=== PATIENT | female | born 1990 | race Caucasian/White ===

== ENCOUNTER → 2019-06-14 13:46 | Outpatient (BNVA) | payer OTHER, SELFPAY | PROVIDERS: Visit Provider Family Medicine | DX: Z32.00 Encounter for pregnancy test, result unknown (principal) | CPT/HCPCS: 81025 ==

== ENCOUNTER → 2020-03-14 11:10 | Outpatient (BNVA) | payer OTHER, SELFPAY | PROVIDERS: Visit Provider Obstetrics & Gynecology | DX: N92.0 Excessive and frequent menstruation with regular cycle (principal) | CPT/HCPCS: 83525; 84443; 85025 ==

== ENCOUNTER → 2020-03-27 13:46 | Outpatient (BNVA) | payer OTHER, SELFPAY | PROVIDERS: Visit Provider Obstetrics & Gynecology | DX: N92.0 Excessive and frequent menstruation with regular cycle (principal); N83.8 Other noninflammatory disorders of ovary, fallopian tube and broad ligament; N85.2 Hypertrophy of uterus | CPT/HCPCS: 76830 ==

== ENCOUNTER → 2020-04-04 13:47 | Outpatient (BNVA) | payer OTHER, SELFPAY | PROVIDERS: Visit Provider Obstetrics & Gynecology | DX: Z12.4 Encounter for screening for malignant neoplasm of cervix (principal) | CPT/HCPCS: 88175 ==

== ENCOUNTER → 2020-04-28 10:18 | Outpatient (BNVA) | payer OTHER, SELFPAY | PROVIDERS: Referring Provider Obstetrics & Gynecology; Visit Provider Obstetrics & Gynecology | DX: G89.29 Other chronic pain (principal); N80.9 Endometriosis, unspecified; N92.0 Excessive and frequent menstruation with regular cycle; R10.2 Pelvic and perineal pain | CPT/HCPCS: 87635 ==

== ENCOUNTER 2020-05-04 05:54 | Day surgery (SDC) | payer OTHER, SELFPAY ==
[2020-04-27 09:47] VITALS: BMI 25.1
--- NOTE | 2020-04-27 13:38 | ANES.PREANE2 ---
Pre-Anesthetic Assessment Pre-Anesthetic Assessment: Height/Weight: Height 1.6 m Weight 64.41 kg Proposed Procedure: Operation Date: 05/04/20 07:00 Proposed Procedures p Laparoscopy with fulguration of endometriosis 27313, 94952, 93494, 72489, N80.9 R10.2 N94.89 N92.0(Not Applicable) - Cally Andrews MD s Hysteroscopy(Not Applicable) - Cally Andrews MD s Dilation And Curettage (D&C)(Not Applicable) - Cally Andrews MD Was Beta Igor taken within 24 hours: N/A Social: Social History: Tobacco Exam: Pre-Anes Outpt Exam: alert, oriented x 3, clear to auscultation bilaterally and regular rate & rhythm Airway: Submandibular: WNL Cervical ROM: WNL MP: 2 Dentition: Full Additional comments: multiple caries Anesthetic Plan: ASA status: 2 Anesthesia: General Risk of > 500 ml blood loss (7ml/kg in children): No PFSH Anesthesia PFSH: Medical History Menorrhagia No pertinent past medical history Surgical History No pertinent past surgical history Family History Father Stroke Heart disease Sister Diabetes Grandmother Diabetes Other Cancer Denies family history of Hyperlipidemia Suicide Hypertension Social History (Updated 04/26/20 @ 12:38 by FIDEL Flood) Smoking and tobacco status: current every day smoker cigarettes Alcohol intake: never Substance/Drug Use: never Female Reproductive History: Date of last menstrual period: 04/18/20 Data Anesthesia Cardiac Studies: No Data to Display
[2020-05-04] VITALS (10 sets, daily range): BP systolic 89–134; BP diastolic 68–97; PULSE 82–107; RESP 16–20; TEMP 36.4–37; O2SAT 97–100
[2020-05-04 06:11] LABS: OR HCG Qualitative Urine Negative (Negative)
[2020-05-04] MEDS: ketorolac 30 mg/mL INJ IVP (06:22)
[2020-05-04] MEDS: gabapentin 300 mg Capsule PO (06:23)
[2020-05-04] MEDS: sodium chloride 0.9% 1,000 ML 999 ML IV (06:23)
--- NOTE | 2020-05-04 06:55 | W.PM.OPSUD ---
Surgery/Procedure H&P Update DATE OF PROCEDURE: May 04, 2020 DATE H&P PERFORMED: 04/26/20 H&P UPDATE INFORMATION: I have reviewed H&P completed within last 30 days, I have examined patient prior to procedure and No changes to prior documentation PREOP DIAGNOSIS: menorrhagia, pelvic pain, endometriosis PLANNED PROCEDURE: Operation Date: 05/04/20 07:00 Proposed Procedures p Laparoscopy with fulguration of endometriosis 03201, 48205, 81723, 25428, N80.9 R10.2 N94.89 N92.0(Not Applicable) - Cally Andrews MD s Hysteroscopy(Not Applicable) - Cally Andrews MD s Dilation And Curettage (D&C)(Not Applicable) - Cally Andrews MD
--- NOTE | 2020-05-04 06:56 | P.ANESUD_ITS ---
Pre-Anesthetic Update Pre-Anesthetic Assessment: Date of Surgery/Procedure: 05/04/20 Preop Annetta gnosis: menorrhagia, pelvic pain, endometriosis Proposed Procedure: Operation Date: 05/04/20 07:00 Proposed Procedures p Laparoscopy with fulguration of endometriosis 33263, 24233, 84742, 63486, N80.9 R10.2 N94.89 N92.0(Not Applicable) - Cally Andrews MD s Hysteroscopy(Not Applicable) - Cally Andrews MD s Dilation And Curettage (D&C)(Not Applicable) - Cally Andrews MD Any changes to Pre-Anesthetic Assessment?: No Last Intake: Intake Last Liquid Date 05/04/20 Last Liquid Time 04:30 Last Solid Date 05/03/20 Last Solid Time 21:00 Labs Last 48hrs: Laboratory Results - last 48 hr 05/04/20 05:57 Urine HCG, Qual Negative Vitals: Temperature 98.6 F 05/04/20 06:15 Temperature Source Temporal Artery S can 05/04/20 06:15 Pulse Rate 102 H 05/04/20 06:15 Respiratory Rate 18 05/04/20 06:15 Blood Pressure 111/68 05/04/20 06:15 Blood Pressure Tari n 82 05/04/20 06:15 Pulse Oximetry 98 05/04/20 06:15 Oxygen Delivery Me thod 05/04/20 06:15 Exam: Pre-Anes Outpt Exam: alert, oriented x 3, clear to auscultation bilaterally and regular rate & rhythm Cardiac Studies: No Data to Display
[2020-05-04] MEDS: miSOPROStol 200 mcg Tablet 600 MCG VAGINAL (07:48)
--- NOTE | 2020-05-04 08:05 | SUR.OPER ---
phoned with an update
--- NOTE | 2020-05-04 08:40 | PM.OP ---
Operative Report Date of procedure: May 04, 2020 Pre-op Diagnosis: menorrhagia, pelvic pain, endometriosis Post-op diagnosis: same Post-op Findings: Large cervical fibroid, endometriosis Procedure Done: laparoscopy, attempted hysteroscopy Specimens removed/disposition: endometriosis Pathology: other Pathology: endometriosis Anesthesia: General Estimated blood loss (mL): 20 IV fluids (mL): 800 Urine output (mL): 400 Complications: unable to dilate cervix. Large cervical fibroid present. Findings: 10 week sized uterus, grossly normal appearing ovaries, endometriosis in pelvis, large cervical fibroid Condition: stable Disposition: PACU Procedure: The patient was taken to the operating room where general anesthesia was administered and found to be adequate. She is prepped and draped in the normal sterile fashion in the dorsal lithotomy position in [facility]. A Monzon catheter was placed. I attempted to place these Zumi uterine manipulator but was unable to place it. I then attempted to dilate the cervix in order to place the ZUMI manipulator. I tried all different types of dilators and was unable to dilate the cervix. I placed 600 mcg of Cytotec vaginally posterior to the cervix. I was still unable to dilate the cervix. The hysteroscopic portion was abandoned. A sponge stick was placed into the vagina. The gloves were changed and a 5 mm infra umbilical incision was made. The trocar was placed with the laparoscope inside and intra-abdominal placement was confirmed. Two 5 mm lateral trochars were placed under direct visualization. The patient was placed in Trendelenburg. The uterus was elevated. There was a large cervical fibroid present. There was endometriosis over the bladder the posterior peritoneum the anterior peritoneum and the left pelvic sidewall. The left ovary was slightly enlarged. I attempted to drain a cyst however there was no fluid in the cyst it was ovarian parenchyma only. Using the voyant, I fulgurated the endometriosis. There were some areas of endometriosis on the left ovary and I fulgurated them as well. There was a lot of blood-tinged fluid in the pelvis. This was irrigated and suctioned. Pictures were taken pre and post procedure. All instruments were removed. The abdomen was desufflated. The incisions were closed subcutaneously with 4-0 Vicryl and skin glue was used. Sponge lap and needle counts were correct x3. She tolerated the procedure well and was taken to the recovery room in stable condition.
[2020-05-04] MEDS: fentaNYL 50 mcg/mL INJ 2mL IVP (08:47)
[2020-05-04] MEDS: meperidine 50 mg/mL INJ 12.5 MG IVP (08:57)
--- NOTE | 2020-05-04 08:58 | PM.DCS ---
Discharge Providers Date of Discharge: May 04, 2020 Attending Provider at Discharge: Cally Andrews MD Diagnoses at Discharge Discharge Diagnosis (1) Chronic pelvic pain in female: Status: Acute (2) Endometriosis: Status: Acute (3) Menorrhagia: Status: Acute Reason for Visit Reason for Visit: Laparoscopy with fulguration of endometriosis (586 Hospital Course Hospital Course The patient was admitted for surgery. She did well postoperatively and was ready for discharge. Physical Exam Urinary Catheter Management^: Monzon: Cath Placed During This Visit: yes Urinary Catheter Date of Insertion: 05/04/20 Urinary Catheter Time of Insertion: 07:35 Discharge Data Data Completed and Pending: Pending at discharge Category Date Time Status ES surgery / GI i mages Routine Exams 05/04/20 07:29 Taken Pathology: Surgic al [PTH] Routine Pth 05/04/20 08:44 Ordered Labs from last 24 hours 05/04/20 05:57 Urine HCG, Qual Negative Vitals: Last Vital Signs Temp 97.5 F L 05/04/20 08:40 Pulse 96 05/04/20 08:55 Resp 18 05/04/20 08:57 BP 121/97 05/04/20 08:55 Pulse Ox 99 05/04/20 08:57 Discharge Plan Discharge Patient Disposition: Home Condition: Stable Prescriptions: [place] 5-325 mg tablet 1 tab PO Q6H Qty: 30 RF: 0 Continued acetaminophen [Tylenol] 325 mg tablet 325 mg PO QID PRN (Reason: Pain) RF: 0 ibuprofen 200 mg tablet 600 mg PO Q6H PRN (Reason: Pain) RF: 0 tranexamic acid [Lysteda] 650 mg tablet 650 mg PO TID Qty: 18 RF: 6 Discharge Orders: Discharge Order (Routine); Ordered 05/04/20 Ordered By: Cally Andrews Discharge Attestations Time Spent in Discharge Care*: less than 30 min Quality Metrics Clinical Quality Measures During this hospital stay, did patient experience: None Coding Level of Care Code Acute Is/It Project Manager for Chg Fwd Diagnoses Chronic pelvic pain in female R10.2; G89.29 Endometriosis N80.9 Menorrhagia N92.0
[2020-05-04] MEDS: HYDROcodone-acetaminophen 5-325 mg Tablet 1 TAB PO (09:31)
== END 2020-05-04 10:16 | disposition home or self-care (01) ==
PROVIDERS: Anesthesiology; Visit Provider Obstetrics & Gynecology
PROC: (CPT 58670; principal; 2020-05-04 07:00)
PROC: 0UJD8ZZ Inspection of Uterus and Cervix, Via Natural or Artificial Opening Endoscopic (ICD-10-PCS; CPT 58555; 2020-05-04 07:00)
DX: N92.0 Excessive and frequent menstruation with regular cycle (principal); R10.2 Pelvic and perineal pain; N80.9 Endometriosis, unspecified; G89.29 Other chronic pain; F17.210 Nicotine dependence, cigarettes, uncomplicated
CPT/HCPCS: 58662; 81025; 84703; 88307; 96365; 96374; J0131; J0690; J1100; J1885; J2175; J2405; J2704; J3010; J3490; J7030

== ENCOUNTER → 2020-06-21 13:24 | Outpatient (BNVA) | payer OTHER, SELFPAY | PROVIDERS: PCP Family Medicine; Visit Provider Counselor Professional | DX: F33.1 Major depressive disorder, recurrent, moderate (principal) | CPT/HCPCS: 90791 ==

== ENCOUNTER → 2020-07-11 09:21 | Outpatient (BNVA) | payer OTHER, SELFPAY | PROVIDERS: PCP Family Medicine; Visit Provider Psychiatry & Neurology Psychiatry | DX: F41.1 Generalized anxiety disorder (principal) | CPT/HCPCS: 90792 ==

== ENCOUNTER → 2021-06-26 08:49 | Outpatient (BNVA) | payer OTHER, SELFPAY | PROVIDERS: PCP Family Medicine; Visit Provider Emergency Medicine | DX: D25.9 Leiomyoma of uterus, unspecified (principal); R10.2 Pelvic and perineal pain; G89.29 Other chronic pain | CPT/HCPCS: 81025 ==

== ENCOUNTER → 2021-06-28 09:30 | Outpatient (BNVA) | payer OTHER, SELFPAY | PROVIDERS: PCP Family Medicine; Visit Provider Obstetrics & Gynecology | DX: F41.9 Anxiety disorder, unspecified (principal) | CPT/HCPCS: 84443 ==

== ENCOUNTER 2021-07-17 11:12 | Day surgery (SDC) | payer OTHER, SELFPAY ==
[2021-07-16 11:14] VITALS: BMI 23.9
[2021-07-17] VITALS (15 sets, daily range): BP systolic 97–113; BP diastolic 57–83; PULSE 56–87; RESP 16–22; TEMP 36.2–37.6; O2SAT 92–100
[2021-07-17] MEDS: sodium chloride 0.9% 1,000 ML 30 ML IV (12:31)
[2021-07-17 14:14] LABS: OR HCG Qualitative Urine Negative (Negative)
--- NOTE | 2021-07-17 14:15 | ANES.PREANE2 ---
Pre-Anesthetic Assessment Height/Weight: Height 1.6 m Weight 61.235 kg Temp Pulse Resp BP Pulse Ox 98.0 F 85 18 103/83 99 07/17/21 12:13 07/17/21 12:13 07/17/21 12:13 07/17/21 12:13 07/17/21 12:13 Preop Diagnosis: menorrhagia, pelvic pain, cervical fibroid Operation Date: 07/17/21 13:05 Proposed Procedures p Hysteroscopy w/ Myosure 03381/10657/32976/N93.9(Not Applicable) - Cally Andrews MD s Dilation And Curettage (D&C)(Not Applicable) - Cally Andrews MD Familial anesthetic complications: None Was Beta Igor taken within 24 hours: N/A Was Clonidine taken within 24 hours: N/A Last intake: Intake Last Liquid Date 07/17/21 Last Liquid Time 06:15 Last Solid Date 07/16/21 Last Solid Time 18:00 Social No alcohol Exam alert, oriented x 3, clear to auscultation bilaterally and regular rate & rhythm Airway Submandibular: within normal limits Cervical ROM: within normal limits Mallampati: Class II Dentition: chipped Comments: Comments: Poor dentition, multiple caries CV/HEM Arrythmia and Murmur (MVP) Neuropsych Anxiety Anesthetic Plan ASA status: 2 Anesthesia: General Medications/Allergies Home Medications Medication Instructions Recorded Confirmed Last Taken Type acetaminophen 325 mg tablet 325 mg PO QID PRN 11/03/19 07/16/21 07/16/21 History (Tylenol) ibuprofen 800 mg tablet 800 mg PO Q8H PRN #60 tab 06/25/21 07/16/21 Unknown Rx misoprostol 200 mcg tablet 600 mcg PO Q6H #12 tab 06/28/21 07/16/21 07/17/21 06:15 Rx (Cytotec) Allergies Allergy/AdvReac Type Severity Reaction Status Date / Time tramadol Allergy Severe sick Verified 07/16/21 11:13 chlorpheniramine AdvReac Severe Unknown Verified 07/16/21 11:13 [From Aller-Chlor Decongestant] pseudoephedrine AdvReac Severe Unknown Verified 07/16/21 11:13 [From Aller-Chlor Decongestant] acetaminophen AdvReac Intermediate constipation Verified 07/16/21 11:13 [From Tylenol-Codeine #3] - abdominal pain codeine AdvReac Intermediate constipation Verified 07/16/21 11:13 [From Tylenol-Codeine #3] - abdominal pain Current Medications Generic Name Dose Route Start Last Admin Trade Name Obdulio PRN Reason Stop Dose Admin Sodium Chloride 1,000 mls @ 30 mls/hr 07/17/21 12:00 07/17/21 12:31 Sodium Chloride 0.9% IV 07/18/21 11:59 30 mls/hr .Q24H ELVIA Administration PFSH Anesthesia Medical History Adnexal mass KAYLA (generalized anxiety disorder) Menorrhagia Mitral valve prolapse No pertinent past medical history neghx: dm, htn, thyroid PCP: none Tachycardia Tonsillectomy planned Surgical History History of laparoscopy No pertinent past surgical history Previous section Family History Father Stroke Heart disease Palpitations Sister Diabetes Grandmother Diabetes Other Cancer Denies family history of Clotting disorder Hyperlipidemia Suicide Bleeding disorder Hypertension Female Reproductive History Date of last menstrual period: 04/18/20 Data Anesthesia Cardiac Studies: Cardiac Event Monitor 06/30/20
--- NOTE | 2021-07-17 14:20 | W.PM.OPSUD ---
Surgery/Procedure H&P Update DATE OF PROCEDURE: July 17, 2021 DATE H&P PERFORMED: 07/13/21 H&P UPDATE INFORMATION: I have reviewed H&P completed within last 30 days, I have examined patient prior to procedure and No changes to prior documentation PREOP DIAGNOSIS: menorrhagia, pelvic pain, cervical fibroid PLANNED PROCEDURE: Operation Date: 07/17/21 13:05 Proposed Procedures p Hysteroscopy w/ Myosure 56490/04200/63120/N93.9(Not Applicable) - Cally Andrews MD s Dilation And Curettage (D&C)(Not Applicable) - Cally Andrews MD Related Problem List Diagnoses (1) Chronic pelvic pain in female: (2) Menorrhagia:
[2021-07-17] MEDS: miSOPROStol 200 mcg Tablet 800 MCG VAGINAL (15:23)
--- NOTE | 2021-07-17 15:43 | P.OP_ITS ---
Operative Report Date of procedure: July 17, 2021 Pre-op diagnosis: Preop Diagnosis menorrhagia, pelvic pain, cervical fibroid Post-op diagnosis: same Post-op findings: 10 week sized uterus with excessive tissue. possible fibroids and polyps Procedure done: hysteroscopy, dilation and curettage with myosure Specimens removed/disposition: endometrial curettings to pathology Surgeon: Cally Andrews Anesthesia: MAC Estimated blood loss (mL): 10 IV fluids (mL): 600 Complications: none Findings: 10 week sized uterus 480 ml hysteroscopy deficit Condition: stable Disposition: PACU Procedure: The patient was taken to the operating room where monitored anesthesia was administered and to be adequate. She was prepped and draped in the normal sterile fashion in the dorsal lithotomy position in [facility]. A weighted speculum was placed into the vagina and the anterior lip of the cervix grasped with a single-tooth tenaculum. The uterus was unable to be sounded due to cervical stenosis. 800 mcg of cytotec was placed and the uterus sounded to 10 cm. The cervix was dilated to 16 [place]. The hysteroscope was advanced into the endometrial cavity. There was excessive tissue visualized. There was tissue covering the right tubal ostia. The MyoSure device was activated and the tissue was removed. Pictures were taken pre and post procedure. All instruments were removed. The patient tolerated the procedure well. Sponge lap and needle counts were correct x3. She was taken to the recovery room in stable condition.
--- NOTE | 2021-07-17 15:51 | PM.DCS ---
Discharge Providers Date of Admission: 07/17/21 Date of Discharge: July 17, 2021 Attending Provider at Discharge: Cally Andrews MD Primary Care Provider: Edith Peña MD Diagnoses at Discharge Discharge Diagnosis (1) Chronic pelvic pain in female: Status: Acute (2) Menorrhagia: Status: Acute Hospital Course Hospital Course The patient was admitted for surgery. She did well postoperatively and was ready for discharge after surgery Discharge Data Studies Completed and Pending Pending at discharge Category Date Time Status ES surgery / GI images Routine Exams 07/17/21 12:32 Taken Pathology: Surgical [PTH] Routine Pth 07/17/21 15:28 Ordered Laboratory Results Urine HCG, Qual Negative (Negative) 07/17/21 12:22 Vitals Last Vital Signs Temp 98.0 F 07/17/21 12:13 Pulse 85 07/17/21 12:13 Resp 18 07/17/21 12:13 BP 103/83 07/17/21 12:13 Pulse Ox 99 07/17/21 12:13 Discharge Plan Discharge Patient Disposition: Home Condition: Stable Prescriptions: Continued acetaminophen [Tylenol] 325 mg tablet 325 mg PO QID PRN (Reason: Pain) 0RF misoprostol [Cytotec] 200 mcg tablet 600 mcg PO Q6H Qty: 12 0RF Rx Instructions: start taking at noon the day before surgery. Last dose at 6:00 am the morning of surgery ibuprofen 800 mg tablet 800 mg PO Q8H PRN (Reason: pain) Qty: 60 0RF Discharge Orders: Discharge Order (Routine); Ordered 07/17/21 Ordered By: Cally Andrews Discharge Attestations Time Spent in Discharge Care*: less than 30 min Quality Metrics Clinical Quality Measures [ No reported AMI, CVA or VTE this stay] Coding Level of Care Code Acute Chg FW DC note Diagnoses Chronic pelvic pain in female R10.2; G89.29 Menorrhagia N92.0
[2021-07-17] MEDS: fentaNYL 50 mcg/mL INJ 2mL IVP ×2 (16:03→16:14)
--- NOTE | 2021-07-17 16:20 | SUR.PHASEI ---
1546 PT TO PACU 4 PT AWAKE, C/O OF PAIN OF 7 TO ABDOMEN ABDOMEN SOFT ALBERTO PAD IN PLACE D/I IV TO RT AC WITH #20 NS 250 UP AT MOD RATE PER GRAVITY. SCDS ON BILATERALLY LT WRIST HAS ID BRACELET PT ID'D WITH 2 IDENTIFIERS. 1625 [T AWAKE ALERT TALKTAVE , STATES PAIN IS BETTER NOW.
--- NOTE | 2021-07-17 16:27 | ANE.PACU2 ---
Inpatient post-anesthesia follow up: Airway intact: Yes Vital signs: Temperature 97.2 F Pulse Rate 73 Respiratory Rate 16 Blood Pressure 112/70 Pulse Oximetry 98 Oxygen Delivery Me thod Room Air Oxygen Flow Rate 8 Fraction of Inspir ed Oxygen Hydration adequate: Yes Nausea and vomiting: No Pain level: 2 Mental status: Baseline
== END 2021-07-17 17:05 | disposition home or self-care (01) ==
PROVIDERS: PCP Family Medicine; Visit Provider Obstetrics & Gynecology
PROC: 0UDB8ZZ Extraction of Endometrium, Via Natural or Artificial Opening Endoscopic (ICD-10-PCS; CPT 58558; principal; 2021-07-17 12:55)
PROC: (CPT 58120; 2021-07-17 12:55)
DX: R10.2 Pelvic and perineal pain (principal); G89.29 Other chronic pain; N92.0 Excessive and frequent menstruation with regular cycle; F41.9 Anxiety disorder, unspecified
CPT/HCPCS: 58558; 81025; 84703; 88305; J0690; J1100; J1885; J2250; J2405; J2704; J3010; J7030

== ENCOUNTER → 2022-05-30 14:25 | Outpatient (BNVA) | payer OTHER, SELFPAY | PROVIDERS: PCP Family Medicine; Visit Provider Family Medicine | DX: G89.29 Other chronic pain (principal); M25.551 Pain in right hip; M25.552 Pain in left hip; F41.1 Generalized anxiety disorder; F32.1 Major depressive disorder, single episode, moderate | CPT/HCPCS: 72100; 73523 ==

== ENCOUNTER 2022-07-04 10:34 | Outpatient (CLI) | payer OTHER, SELFPAY ==
--- NOTE | 2022-07-04 11:00 | MR_ITS ---
WS: [id number] MRI LUMBAR SPINE NONCONTRAST TECHNIQUE: Sagittal T1, T2 and STIR imaging. Axial T1 and T2 imaging. CLINICAL INFORMATION: M54.5 - Low back pain COMPARISON: MRI 2018 FINDINGS: Mild lumbar curve. No acute compression. Schmorl's nodes L1-L2 and L2-L3. No acute compression fractu res. No high-grade central canal stenosis. L1-L2: No significant disc bulging. Mild facet arthropathy. L2-L3: Mild annular bulging. Minimal narrowing of the RIGHT articular recess. Tiny LEFT foraminal pro trusion. Spinal canal and foramen are patent. Mild facet arthropathy. L3-L4: Tiny LEFT foraminal protrusion with contact of the proximal exiting LEFT L3 nerve root. RIGHT foramen is patent. Spinal canal is patent. Mild facet arthropathy. L4-L5: Mild annular bulging. Slight narrowing of the LEFT subarticular recess. Mild LEFT and no signi ficant RIGHT foraminal narrowing. Mild facet arthropathy. L5-S1: No significant disc bulging. Spinal canal and foramen are patent. Mild facet arthropathy. Visualized pelvic bony structures: Normal. Paravertebral soft tissues: Normal. MR/MR lumbar spine wo con* [id number] IMPRESSION: Overall no unremarkable changes since 2018 1. Mild lumbar curve. No acute compression. No high-grade central canal stenos is. 2. Small LEFT foraminal protrusion L3-L4 with slight contact of the exiting LE FT L3 nerve root. Recommend correlation LEFT L3 nerve root symptoms. 3. Mild annular bulging L4-L5 with slight effacement of the ventral thecal sac . Mild RIGHT foraminal narrowing. 4. Shallow central disc protrusion T12-L1 unchanged from previous. 5. Tiny shallow pericentral protrusion L2-L3 with slight narrowing of the RIGH T subarticular recess unchanged. 6. No other acute findings.
== END 2022-07-04 10:35 | disposition home or self-care (01) ==
LOC: RAD 10:40
PROVIDERS: PCP Family Medicine; Visit Provider Family Medicine
DX: G89.29 Other chronic pain (principal); M25.78 Osteophyte, vertebrae; M47.816 Spondylosis without myelopathy or radiculopathy, lumbar region; M51.9 Unspecified thoracic, thoracolumbar and lumbosacral intervertebral disc disorder; M50.30 Other cervical disc degeneration, unspecified cervical region; M51.26 Other intervertebral disc displacement, lumbar region; M51.36 Other intervertebral disc degeneration, lumbar region; M51.24 Other intervertebral disc displacement, thoracic region
CPT/HCPCS: 72148

== ENCOUNTER 2022-08-07 11:30 | Emergency (ER) | payer OTHER, SELFPAY ==
[2022-08-07 11:32] VITALS: BP 111/84; PULSE 94; RESP 18; TEMP 36.7; O2SAT 99; BMI 27.1
[2022-08-07] MEDS: morphine 4 mg/mL SDV 1 mL IVP ×2 (12:25→13:34)
[2022-08-07] MEDS: orphenadrine 30 mg/mL Inj 2 mL 60 MG IVP (12:26)
--- NOTE | 2022-08-07 12:29 | ED_ITS ---
HPI - Back Pain/Injury General: Chief Complaint: Back Pain/Injury Stated Complaint: Sent from clinic, back pain Time Seen by Provider: 08/07/22 11:32 Source: patient Mode of arrival: ambulatory History of Present Illness: 32-year-old female presents emergency room with complaint of low back pain. She has chronic low back pain intermittently exacerbated. She has not really done anything and she can recall recently does seem to set it off. About 1 to 2 weeks ago they stopped suddenly while driving but there is no impact. She did have an MRI last month which showed a small foraminal protrusion irritating the left L3 nerve root and a mild annular bulge on the L4-5 affecting both the left and the right but there is no significant right foraminal stenosis MD elicited complaint: back pain Pertinent past history: prior back pain Onset (ago): day(s) Timing: constant Location: lumbar spine Radiation: left upper leg Exacerbating factors: sitting upright and walking Relieving factors: supine Associated symptoms: Deny abdominal pain, arthralgias, chills, change in bowel habits, difficulty walking, dysuria, fatigue, fecal incontinence, fever(s), hematuria, myalgias, nausea, numbness, syncope, tingling/numbness/burning, urinary frequency, urinary urgency, vomiting or weakness Review of Systems Const: Denies: fever(s), chills, fatigue or malaise ENMT: Denies: throat pain, ear or mastoid pain, nasal discharge or nasal congestion Card: Denies: chest pain or syncope Resp: Denies: dyspnea, productive cough or non-productive cough GI: Denies: abdominal pain, nausea, vomiting, fecal incontinence or change in bowel habits : Denies: dysuria, urinary urgency or hematuria Musc: Reports: back pain and extremity pain Skin/Breast: Denies: rash or pruritus Neuro: Denies: difficulty walking PFSH ED PFSH: Medical History Adnexal mass KAYLA (generalized anxiety disorder) Menorrhagia Mitral valve prolapse No pertinent past medical history neghx: dm, htn, thyroid PCP: none Psychiatric care Tachycardia Tonsillectomy planned Surgical History History of laparoscopy No pertinent past surgical history Previous section Family History Father Stroke Heart disease Palpitations Sister Diabetes Grandmother Diabetes Other Cancer Denies family history of Clotting disorder Hyperlipidemia Suicide Bleeding disorder Hypertension Social History Smoking and tobacco status: current every day smoker (4 cigarettes daily Started smoking at 15) cigarettes Substance/Drug Use: never Physical Exam Const: GENERAL APPEARANCE: cooperative and comfortable ORIENTATION/CONSCIOUSNESS: Yes awake, Yes oriented to person, Yes oriented to place and Yes oriented to time HENMT: COMMON NORMALS: normocephalic, atraumatic and hearing grossly normal bilaterally HEAD & SCALP: normocephalic and atraumatic Resp: COMMON NORMALS: normal respiratory effort, No retractions, No use of accessory muscles and clear to auscultation bilaterally AUSCULTATION: clear to auscultation bilaterally Cardio: COMMON NORMALS: regular rate, regular rhythm and No murmurs present (Cardio) RATE: regular rate RHYTHM: regular rhythm GI: COMMON NORMALS: Soft to palpation and No hepatosplenomegaly present AUSCULTATION: Yes normoactive bowel sounds PALPATION: Yes Soft to palpation, No Tenderness to palpation present (GI), No Guarding due to palpation present (GI) and Yes No hepatosplenomegaly present Extremity: COMMON NORMALS: normal to inspection, capillary refill normal, no clubbing, cyanosis or edema, no calf tenderness and no pedal edema Neuro: SENSORIUM/ORIENTATION: Yes oriented to person, Yes oriented to place and Yes oriented to time OTHER: Dorsum plantarflexion 5/5 mildly decreased sensation in the L3 nerve root distribution on the left. L4-5 bilaterally sensation dermatome is normal Skin: COMMON NORMALS: no rashes or lesions noted GENERAL SKIN EXAM: no rashes or lesions noted Course Vital Signs: Vital signs: Vital Signs Temperature 98.1 F 08/07/22 11:32 Pulse Rate 91 08/07/22 15:11 Respiratory Rate 14 08/07/22 15:11 Blood Pressure 113/84 08/07/22 15:11 Pulse Oximetry 99 08/07/22 15:11 Oxygen Delivery Me thod Room Air 08/07/22 12:31 MDM - Back Pain/Injury Medical Decision Making Anti-inflammatories narcotics muscle relaxers and steroids given. Patient does have some improvement not complete resolution however though. MRI is already done recently there is no recent trauma. Repeating MRI at this point did not think would be particularly helpful she has no red flag symptoms at this point. Discharged home with muscle relaxers steroid taper and anti-inflammatories narcotics as needed. Prescription given we will make referral to orthopedic spine surgery. Medical Records I reviewed the patient's medical records. Labs I reviewed the patient's lab results. Discharge Plan Discharge Patient Disposition: Home Clinical Impression: Lumbar back pain with radiculopathy affecting left lower extremity Condition: Stable Prescriptions: New tizanidine 4 mg tablet 4 mg PO Q6H PRN (Reason: muscle spasticity) Qty: 20 0RF Rx Instructions: do not exceed 3 doses per 24 hrs hydrocodone-acetaminophen 5-325 mg tablet 1 tab PO Q6H PRN (Reason: pain) Qty: 10 0RF prednisone 20 mg tablet 20 mg PO TID Qty: 15 0RF Rx Instructions: 1 p.o. 3 times daily x3 days, 1 p.o. twice daily x2 days, 1 p.o. daily x2 days diclofenac sodium 75 mg tablet,delayed release (DR/EC) 75 mg PO Q12H PRN (Reason: pain) Qty: 20 0RF Discontinued ibuprofen 800 mg tablet 800 mg PO Q8H PRN (Reason: pain) Qty: 60 0RF No Action acetaminophen [Tylenol] 325 mg tablet 325 mg PO QID PRN (Reason: Pain) clonazepam [Klonopin] 0.5 mg tablet 0.5 mg PO DAILY PRN (Reason: panic attacks ) Qty: 30 1RF Rx Instructions: must last 30 days Seroquel 25 mg tablet 25 mg PO BEDTIME Discharge Orders: Discharge ED (Routine); Ordered 08/07/22 Ordered By: Yoni Giron Referrals: Evi Marrufo MD [Primary Care Provider] - Discharge Diet: Usual diet Discharge Activity: Limit activity as instructed Patient Instructions: Opioid Safety, Pain Management Activity Restrictions/Additional Instructions: You are seen today for back pain with pain extending into your left leg. MRI from July of this year was reviewed. You are discharged home with hydrocodone and diclofenac tizanidine and a steroid taper. Case management make arran gements for you to follow-up with Dr. Sue's office regarding your MRI and other options to treat your back pain. 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
[2022-08-07 12:31] VITALS: BP 111/84; PULSE 103; RESP 16; O2SAT 98
[2022-08-07 15:11] VITALS: BP 113/84; PULSE 91; RESP 14; O2SAT 99
--- NOTE | 2022-08-08 08:10 | DCPLANNER ---
Addendum entered by Vanita Pool 08/16/22 08:49: Patient had a follow up appointment scheduled with ortho - patient did attend appointment. Addendum entered by Vanita Pool 08/08/22 10:41: Patient has a follow up appointment scheduled for , August 15, 2022 at 3:[address] Sue at ortho. Original Note: manager wound had message to schedule a follow up appointment for patient with ortho. manager wound sent patients information to the front office staff at ortho. Patients information will be printed and reviewed. Clinic will call patient with appointment information.
== END 2022-08-07 15:13 | disposition home or self-care (01) ==
PROVIDERS: Emergency Provider Family Medicine; PCP Family Medicine
DX: M54.16 Radiculopathy, lumbar region (principal); F17.210 Nicotine dependence, cigarettes, uncomplicated
CPT/HCPCS: 96374; 96375; 96376; 99284; J2270; J2360

== ENCOUNTER → 2022-12-23 11:17 | Outpatient (BNVA) | payer OTHER, SELFPAY | PROVIDERS: PCP Family Medicine; Visit Provider Nurse Practitioner Family | DX: R68.89 Other general symptoms and signs (principal); R69 Illness, unspecified; J06.9 Acute upper respiratory infection, unspecified | CPT/HCPCS: 87400 ==

== ENCOUNTER → 2023-10-30 11:00 | Outpatient (BNVA) | payer BC, SELFPAY | PROVIDERS: PCP Family Medicine; Visit Provider Nurse Practitioner | DX: J02.9 Acute pharyngitis, unspecified (principal); R50.9 Fever, unspecified; R52 Pain, unspecified | CPT/HCPCS: 87071; 87426; 87880 ==

== ENCOUNTER → 2024-08-12 09:36 | Outpatient (BNVA) | payer MEDICAID, SELFPAY | PROVIDERS: PCP Family Medicine; Visit Provider Family Medicine | DX: Z53.9 Procedure and treatment not carried out, unspecified reason (principal) | CPT/HCPCS: 81025 ==

== ENCOUNTER 2024-08-25 15:23 | Emergency (ER) | payer SELFPAY ==
[2024-08-25 15:27] VITALS: BP 115/71; PULSE 96; RESP 16; TEMP 36.7; O2SAT 97; BMI 24.7
--- OUTSIDE RECORDS SUMMARY | 2024-08-25 15:37 | XMS_ITS | Patient Health Record ---
Author Organization [facility] Address [address] [place], [place] [id number] Care Team Providers Care Lance Crewmember Name Role Phone Ana BENITEZ, Agus Unavailable [phone] Evi Marrufo MD Unavailable Unavailable Allergies Allergen (clinical drug ingredient) Drug/Non Drug Allergy documented on EMR Reaction Allergy Type Onset Date Status tramadol tramadol vomitting, abdominal pain Drug Allergy Active Reason For Referral No Information Medications Medication SIG (Take, Route, Fr equency, Duration) Notes Start Date End Date Status Aleve sodium 220 mg 2 tabs po orally Q8H prn pain; take with food Active Social History Tobacco Use: Social History Observation Description Date Details (start date - stop date) Current Smoker 03/03/2008 - NA alcohol Question Answer Notes Did you have a drink contain ing alcohol in the past year? Yes How often did you have a dri nk containing alcohol in the past year? Monthly or less (1 point) How many drinks did you have on a typical day when you were drinking in the past year? 1 or 2 (0 points) How often did you have six o r more drinks on one occasion in the past year? Never (0 points) Points 1 Interpretation Negative Tobacco use: Question Answer Notes : current smoker Are you interested in quitting? Ready to quit How many cigarettes a day do you smoke? 5 or les s How often do you smoke cigarettes? some days, bu t not every day How soon after you wake up d o you smoke your first cigarette? after 60 min When did you start smoking? 03/03/2008 Problems Problem Type SNOMED Code ICD Code Onset Dates Problem Status W/U Status Risk Notes Problem Solitary sacroiliitis (207273075) Sacroiliitis, not elsewhere classified (M46.1) Active confirmed Problem Low back pain (964668949) Low back pain (M54.5) Active confirmed Problem Lumbosacral spondylosis without myelopathy (31011508) Spondylosis without myelopathy or radiculopathy, lumbar region (M47.816) Active confirmed Problem Sleep disorder (92237928) Other sleep disorders (G47.8) Active confirmed Problem Acquired spondylolisthesis (268395938) Spondylolisthesis , lumbar region (M43.16) Active confirmed Problem Radiculopathy due to lumbar intervertebral disc disorder (337257430492469) Intervertebral disc disorders with radiculopathy, lumbar region (M51.16) Active confirmed Problem Lumbar radiculopathy (950414090) Radiculopathy, lumbar region (M54.16) Active confirmed Problem Dorsalgia, unspecified (M54.9) Active confirmed Problem Long-term current use of drug therapy (463042629) Other shelter (current) drug therapy (Z79.899) Active confirmed Plan Of Treatment No Information Insurance Providers Payer Name Payer Address Payer Phone Subscriber Number Group Number Insured Name Patient Relationship to Insured Coverage Start Date Coverage End Date [employer] [address] [place] [address] [phone] [id number] Nupur Reyes Self - patient is the insured Medical (General) History Medical History History ICD Code Low back pain, left side sciatica Mid back pain Neck pain Spina bifida occulta Scoliosis Mitral valve prolapse (at the age of 17) Surgical History Surgery Date(Month/Year) Tonsillectomy in [place], [place], 2007 delivery [place] by Dr. Ranulfo Marrufo, 2012
[2024-08-25 16:07] LABS: Basophils % 0.5 %; Eosinophils # 0.1 10^3/uL (0.0-0.8); Eosinophils % 1.7 %; Hematocrit 40.4 % (36-47); Lymphocytes # 1.6 10^3/uL (0.8-4.8); Mean Corpuscular HGB Conc 33.7 g/dL (30-55); Mean Corpuscular Hemoglobin 31.2 pg (27-33); Mean Corpuscular Volume 92.7 fl (85-98); Mean Platelet Volume 9.3 fL (7.4-10.4); Monocytes # 0.3 10^3/uL (0.2-0.9); Monocytes % 5.7 %; Neutrophils # 3.93 10^3/uL (1.8-7.7); Neutrophils % 65.9 %; Nucleated Red Blood Cells % 0 %; Platelet Count 263 10^3/cmm (157-399); Red Blood Count 4.36 10^6/uL (3.85-5.65); Red Cell Distribution Width 12.7 % (12.1-15.1); White Blood Count 5.96 10^3/uL (3.29-11.43)
--- NOTE | 2024-08-25 16:41 | ED_ITS ---
HPI - Female Genitourinary 2 General: Chief complaint: Abdominal Pain Stated complaint: 10 wk preg cramping Time Seen by Provider: 08/25/24 16:00 Source: patient Mode of arrival: ambulatory Limitations: no limitations History of Present Illness: Patient is a 34-year-old female who presents with lower abdominal pain/cramping. She states this started last night and the intermittent pain is sharp and aching starting in her suprapubic region and going to her right side. She has accompanying nausea. She says she is 10 weeks . States she had an ultrasound done at approximately 7 weeks that confirmed intrauterine . She has a history of endometriosis. She denies any vaginal bleeding, vaginal discharge, fever, vomiting, changes in bowel movements, urinary symptoms, shortness of breath, chest pain. Is trying to get in with OB in [place], states they never called her back. Is taking a vitamin. Denies feeling this type of pain or anything similar with her first . Has not ran any fevers. Does have history of ovarian cysts as well. Took some Tylenol prior to arrival which helped with her pain. MD elicited complaint: other (lower abdominal/pelvic pain) Pertinent past history: other (endometriosis/ovarian cysts) Onset (ago): day(s) (started last night) Location of symptoms: suprapubic, LLQ and RLQ Severity: moderate Consistency: intermittent Vaginal discharge: none Vaginal bleeding: none Exacerbating factors: none Relieving factors: none Associated symptoms: Reports abdominal pain and nausea; Deny headache(s) or syncope Treatment prior to arrival: acetaminophen Patient : Yes Related Data Home Medications ?Medication ?Instructions ?Recorded ?Confirmed acetaminophen 325 mg tablet 325 mg PO QID PRN Pain 04/2208/12/24 (Tylenol) Previous Rx's ?Medication ?Instructions ?Recorded alprazolam 0.25 mg tablet 0.25 mg PO BID PRN anxiety 3 0 days 08/04/24 #40 tabs doxepin 25 mg capsule 25 mg PO .qhs #30 caps 08/04 Held on 08/12/24. Instructions: Allergies Allergy/AdvReac Type Severity Reaction Status Date / Time tramadol Allergy Severe sick Verified 08/25/24 15:31 chlorpheniramine (From AdvReac Severe Unknown Verified 08/25/24 15:31 Aller-Chlor Decongestant) pseudoephedrine (From AdvReac Severe Unknown Verified 08/25/24 15:31 Aller-Chlor Decongestant) acetaminophen (From AdvReac Intermediate constipation Verified 08/25/24 15:31 Tylenol-Codeine #3) - abdominal pain codeine (From AdvReac Intermediate constipation Verified 08/25/24 15:31 Tylenol-Codeine #3) - abdominal pain Review of Systems 2 Const: Denies: fever(s), chills, body aches, fatigue or malaise Eyes: Denies: change in vision or blurry vision Card: Denies: chest pain, palpitations, lightheadedness or syncope Resp: Denies: dyspnea, productive cough or chest congestion GI: Reports: abdominal pain and nausea; Denies: vomiting, diarrhea or change in bowel habits : Reports: pelvic pain; Denies: flank pain, difficulty voiding, dysuria, urinary frequency, urinary urgency, urinary hesitancy, genital pruritis, vaginal odor or vaginal bleeding Musc: Denies: back pain Neuro: Denies: headache(s) or dizziness PFSH ED 2 PFSH: Medical History Psychiatric care Tonsillectomy planned Adnexal mass No pertinent past medical history neghx: dm, htn, thyroid PCP: none KAYLA (generalized anxiety disorder) Tachycardia Mitral valve prolapse Menorrhagia Surgical History History of laparoscopy Previous section No pertinent past surgical history Family History Father Stroke Heart disease Palpitations Sister Diabetes Grandmother Diabetes Other Cancer Denies family history of Clotting disorder Hyperlipidemia Suicide Bleeding disorder Hypertension Social History Smoking and tobacco/nicotine status: current every day tobacco/nicotine user (03/06 PPD) cigarettes Substance/Drug Use: never Physical Exam 2 Const: COMMON NORMALS: no acute distress, average body habitus, patient oriented x3, no limitations, healthy appearing, alert and well nourished G ENERAL APPEARANCE: cooperative ORIENTATION/CONSCIOUSNESS: Yes awake, Yes oriented to person, Yes oriented to place and Yes oriented to time Resp: COMMON NORMALS: normal respiratory effort and clear to auscultation bilaterally AUSCULTATION: clear to auscultation bilaterally Cardio: COMMON NORMALS: regular rate and regular rhythm RATE: regular rate RHYTHM: regular rhythm GI: COMMON NORMALS: Normal to inspection, nondistended, normoactive bowel sounds present, Soft to palpation, No hepatosplenomegaly present and no masses INSPECTION: Yes normal to inspection and Yes gravid abdomen AUSCULTATION: Y es normoactive bowel sounds PALPATION: Yes Soft to palpation, No Guarding due to palpation present (GI), No Rigid due to palpation and Yes No hepatosplenomegaly present OTHER: mild pain across lower abdomen/pelvis; non-surgical evaluation : COMMON NORMALS: Yes no CVA tenderness BLADDER/KIDNEY EXAM: Yes no CVA tenderness Back/Pelvis: COMMON NORMALS: no CVA tenderness, thoracic and lumbar spine normal to inspection and no thoracic nor lumbar tenderness Extremity: GENERAL: Yes normal exam except as noted Neuro: COMMON NORMALS: patient oriented x3, moves all extremities, no focal motor deficits and no sensory deficits noted SENSORIUM/ORIENTATION: Yes alert, Yes oriented to person, Yes oriented to place and Yes oriented to time Skin: COMMON NORMALS: no rashes or lesions noted GENERAL SKIN EXAM: no rashes or lesions noted Course 2 Vital Signs: Vital signs: Vital Signs Temperature 98.1 F 08/25/24 15:27 Pulse Rate 96 08/25/24 15:27 Respiratory Rate 16 08/25/24 15:27 Blood Pressure 115/71 08/25/24 15:27 Pulse Oximetry 97 08/25/24 15:27 Oxygen Delivery Me thod Room Air 08/25/24 15:27 MDM - Female Medical Decision Making Patient clinically appears in no acute distress. Vital signs are unremarkable. Her blood work overall is nonactionable. UA is clear. Ultrasound showing a live IUP measuring approximately 8w5d. Will place case management referral to get her OB care. She is not having any vaginal bleeding. Return to ED precautions discussed. Medical Records I reviewed the patient's medical records. Lab Data I reviewed the patient's lab results. 08/25/24 15:58 08/25/24 15:58 Laboratory Results WBC 5.96 10^3/uL (3.29-11.43) 08/25/24 15:58 RBC 4.36 10^6/uL (3.85-5.65) 08/25/24 15:58 Hgb 13.60 g/dL (11.27-16.99) 08/25/24 15:58 Hct 40.4 % (36-47) 08/25/24 15:58 MCV 92.7 fl (85-98) 08/25/24 15:58 MCH 31.2 pg (27-33) 08/25/24 15:58 MCHC 33.7 g/dL (30-55) 08/25/24 15:58 RDW 12.7 % (12.1-15.1) 08/25/24 15:58 Plt Count 263 10^3/cmm (157-399) 08/25/24 15:58 MPV 9.3 fL (7.4-10.4) 08/25/24 15:58 Neut % (Auto) 65.9 % 08/25/24 15:58 Lymph % (Auto) 26.0 % 08/25/24 15:58 [place] % (Auto) 5.7 % 08/25/24 15:58 Eos % (Auto) 1.7 % 08/25/24 15:58 Baso % (Auto) 0.5 % 08/25/24 15:58 Neut # (Auto) 3.93 10^3/uL (1.8-7.7) 08/25/24 15:58 Lymph # (Auto) 1.6 10^3/uL (0.8-4.8) 08/25/24 15:58 [place] # (Auto) 0.3 10^3/uL (0.2-0.9) 08/25/24 15:58 Eos # (Auto) 0.1 10^3/uL (0.0-0.8) 08/25/24 15:58 Baso # (Auto) 0.0 10^3/uL (0.0-0.1) 08/25/24 15:58 Nucleated RBC % (auto) 0 % 08/25/24 15:58 Nucleated RBCs # 0.0 /100WBC 08/25/24 15:58 Sodium 140 mmol/L (136-145) 08/25/24 15:58 Potassium 3.5 mmol/L (3.5-5.1) 08/25/24 15:58 Chloride 105 mmol/L (98-107) 08/25/24 15:58 Carbon Dioxide 22 mmol/L (22-29) 08/25/24 15:58 Anion Gap 16.5 (5-19) 08/25/24 15:58 BUN 6 mg/dL (6-20) 08/25/24 15:58 Creatinine 0.5 mg/dL (0.5-0.9) 08/25/24 15:58 GFR Calculation 142.1 mL/min (90-130) H 08/25/24 15:58 Glucose 97 mg/dL (65-115) 08/25/24 15:58 Calculated Osmolality 288 mOsm/kg (285-295) 08/25/24 15:58 Calcium 9.4 mg/dL (8.5-10.5) 08/25/24 15:58 Total Bilirubin 0.3 mg/dL (0.15-1.2) 08/25/24 15:58 AST 10 U/L (0-32) 08/25/24 15:58 ALT 6 U/L (0-33) 08/25/24 15:58 Alkaline Phosphatase 60 U/L (35-105) 08/25/24 15:58 Total Protein 7.2 g/dL (6.6-8.7) 08/25/24 15:58 Albumin 4.5 g/dL (3.5-5.2) 08/25/24 15:58 Globulin 2.7 g/dL (1.3-4.6) 08/25/24 15:58 Ser , Semi-Qnt 08534.00 mIU/mL 08/25/24 15:58 Urine Color Yellow (Yellow) 08/25/24 16:05 Urine Appearance Clear (CLEAR) 08/25/24 16:05 Urine pH 6.5 (5-7) 08/25/24 16:05 Ur Specific [place] 1.021 (1.005-1.030) 08/25/24 16:05 Urine Protein Negative (Negative) 08/25/24 16:05 Urine Glucose (UA) Negative (Normal) 08/25/24 16:05 Urine Ketones Trace (Negative) 08/25/24 16:05 Urine Blood Negative (Negative) 08/25/24 16:05 Urine Nitrate Negative (Negative) 08/25/24 16:05 Urine Bilirubin Negative (Negative) 08/25/24 16:05 Urine Urobilinogen 1.0 mg/dL (Negative) 08/25/24 16:05 Ur Leukocyte Esterase Negative (Negative) 08/25/24 16:05 Urine RBC 0-2 /hpf (0-2) 08/25/24 16:05 Urine WBC 0-5 /hpf (0-5) 08/25/24 16:05 Ur Squamous Epith Cells 6-10 /hpf (0-5) 08/25/24 16:05 Amorphous Sediment Not Reportable 08/25/24 16:05 Urine Bacteria Trace /hpf (NONE) 08/25/24 16:05 Hyaline Casts 0.40 /lpf 08/25/24 16:05 Blood Type O Positive 08/25/24 15:58 Rho(D) Type Rh positive 08/25/24 15:58 Antibody Screen Negative 08/25/24 15:58 XR interpretation done by ED provider, pending radiology final review (per Mick tech-normal) Discharge Plan Discharge Condition: Stable Prescriptions: No Action acetaminophen [Tylenol] 325 mg tablet 325 mg PO QID PRN (Reason: Pain) doxepin 25 mg capsule 25 mg PO .qhs Qty: 30 3RF alprazolam 0.25 mg tablet 0.25 mg PO BID PRN (Reason: anxiety) 30 Days Qty: 40 3RF Referrals: Evi Marrufo MD [Primary Care Provider, Family Practice] Print Language: Hungarian Coding Level of Care Code ED Structural Draftsman for Reggie Paulino
--- NOTE | 2024-08-25 16:42 | USR_ITS ---
PROCEDURE INFORMATION: Exam: US First Trimester, Transabdominal Exam date and time: 08/25/2024 5:06 PM Age: 34 years old Clinical indication: complicated by abdominal or pelvic pain; Lower; First trimester (<14 weeks 0 days); Gestational age or lmp: 06/23/2024; ; Prior surgery; Surgery date: 6+ months; Surgery type: C section; Additional info: Cramping LABS AND CLINICAL REPORTS: Last menstrual period start date: 06/23/2024 Gestational age (Established): 9 w 0 d Estimated due date (Established): 03/30/2025 TECHNIQUE: Imaging protocol: Real-time transabdominal obstetrical ultrasound of the maternal pelvis and a first trimester , less than 14 weeks 0 days, with image documentation. COMPARISON: US transvaginal [id number] 03/27/2020 1:49 PM FINDINGS: GESTATION: Gestation: Yolk sac measures 0 mm. Single viable intrauterine with EGA 8 weeks 5 days. Embryo/ cardiac activity (BPM): 172 bpm Extra-embryonic membranes/Placenta: Unremarkable. No subchorionic bleed. Amniotic/Chorionic fluid: Amniotic and extra-amniotic fluid are normal for gestational age. BIOMETRY: Gestational age (AUA): See Gestation finding. Estimated due date (AUA): ESDRAS by ultrasound April 01, 2025. Mean sac diameter: 3.31 cm. EGA (MSD) is 8 w 3 d MATERNAL: Uterus: Unremarkable. Cervix: Unremarkable. Endocervical canal is closed. Right ovary/adnexa: Obscured by lack of adequate acoustic window. Left ovary/adnexa: Obscured by lack of adequate acoustic window. Intraperitoneal space: No intraperitoneal free fluid. US/US OB <= 14 weeks fetus [id number] IMPRESSION: 1. Single viable intrauterine with EGA 8 weeks 5 days. 2. ESDRAS by ultrasound April 01, 2025.
[2024-08-25 16:59] LABS: Bilirubin Urine Negative (Negative); Blood Urine Negative (Negative); Glucose Urine UA Negative (Normal); Ketones Urine Trace (Negative); Leukocyte Esterase Urine Negative (Negative); Nitrate Urine Negative (Negative); Protein Urine Negative (Negative); Specific Gravity, Urine 1.021 (1.005-1.030); Urine Appearance Clear (CLEAR); Urine Color Yellow (Yellow); pH Urine 6.5 (5-7)
[2024-08-25 17:01] LABS: Add Urine Microscopic? YES; Bacteria Urine Trace /hpf; RBC Urine 0-2 /hpf (0-2); WBC Urine 0-5 /hpf (0-5)
[2024-08-25 17:02] LABS: Alanine Aminotransferase 6 U/L (0-33); Albumin Level 4.5 g/dL (3.5-5.2); Alkaline Phosphatase 60 U/L (35-105); Anion Gap 16.5 (5-19); Aspartate Amino Transferase 10 U/L (0-32); Blood Urea Nitrogen 6 mg/dL (6-20); Calcium 9.4 mg/dL (8.5-10.5); Carbon Dioxide 22 mmol/L (22-29); Chloride 105 mmol/L (98-107); Globulin 2.7 g/dL (1.3-4.6); Glomerular Filtration Rate 142.1 mL/min (90-130); Glucose 97 mg/dL (65-115); Osmolality Calculated 288 mOsm/kg (285-295); Potassium 3.5 mmol/L (3.5-5.1); Sodium 140 mmol/L (136-145); Total Bilirubin 0.3 mg/dL (0.15-1.2); Total Protein 7.2 g/dL (6.6-8.7)
[2024-08-25 17:03] LABS: Add Urine Culture? No
[2024-08-25 17:55] VITALS: BP 124/80; PULSE 83; O2SAT 99
== END 2024-08-25 17:55 | disposition home or self-care (01) ==
PROVIDERS: Emergency Medicine; Emergency Provider Physician Assistant; PCP Family Medicine
DX: O26.891 Other specified pregnancy related conditions, first trimester (principal); Z3A.08 8 weeks gestation of pregnancy; R10.9 Unspecified abdominal pain
CPT/HCPCS: 36415; 76801; 80053; 81001; 84702; 85025; 86850; 86900; 99284

== ENCOUNTER → 2024-09-28 09:33 | Outpatient (BNVA) | payer MEDICAID, SELFPAY | PROVIDERS: PCP Family Medicine; Visit Provider Nurse Practitioner Women's Health | DX: Z34.90 Encounter for supervision of normal pregnancy, unspecified, unspecified trimester (principal); N92.6 Irregular menstruation, unspecified; F41.1 Generalized anxiety disorder | CPT/HCPCS: 80307; 81025; 85025; 86592; 86762; 86803; 86850; 86900; 87086; 87340; 87806 ==

== ENCOUNTER → 2024-10-07 10:50 | Outpatient (BNVA) | payer MEDICAID, SELFPAY | PROVIDERS: PCP Family Medicine; Visit Provider Nurse Practitioner Women's Health | DX: Z34.80 Encounter for supervision of other normal pregnancy, unspecified trimester (principal) | CPT/HCPCS: 84315 ==

== ENCOUNTER → 2024-10-27 10:46 | Outpatient (BNVA) | payer MEDICAID, SELFPAY | PROVIDERS: PCP Family Medicine; Visit Provider Obstetrics & Gynecology | DX: Z34.90 Encounter for supervision of normal pregnancy, unspecified, unspecified trimester (principal) | CPT/HCPCS: 84315; 87491; 87591; 87624; 87661 ==

== ENCOUNTER 2024-11-12 15:50 | Outpatient (CLI) | payer MEDICAID, SELFPAY ==
--- NOTE | 2024-11-12 16:30 | USR_ITS ---
PROCEDURE INFORMATION: Exam: US After First Trimester, Transabdominal Exam date and time: 11/12/2024 4:15 PM Age: 34 years old Clinical indication: Screening exam; Routine US, uterus; Additional info: O09.899 - supervision of other high risk pregnancies, uns. . . , Anatomy scan LABS AND CLINICAL REPORTS: Last menstrual period start date: Unknown Gestational age (Established): 20 w 5 d Estimated due date (Established): 03/27/2025 TECHNIQUE: Imaging protocol: Real-time transabdominal obstetrical ultrasound of the maternal pelvis and a second or third trimester with image documentation. COMPARISON: US OB <= 14 weeks fetus [id number] 08/25/2024 5:06 PM FINDINGS: Gestation: Single live intrauterine gestation heart rate: 144 bpm presentation and position: Placenta: Unremarkable. No subchorionic bleed. Placenta demonstrates small ill-defined hypoechoic area, nonspecific findings. Amniotic fluid (Qualitative): Amniotic fluid is normal for gestational age. Amniotic fluid index: Within normal limits. ANATOMY: midline falx: Normal cerebellum: Normal lateral ventricles: Normal cisterna magna: Normal choroid plexus: Normal face: Upper lip is normal heart four-chamber view, heart size and position: Normal heart right ventricular outflow tract: Normal heart left ventricular outflow tract: Normal kidneys: Normal stomach: Normal urinary bladder: Normal spine: Normal Umbilical cord and insertion: Within normal limits upper limbs: Normal lower limbs: Normal external genitalia: Not assessed BIOMETRY: Gestational age (AUA): 20 weeks and 2 days Estimated due date (AUA): 03/30/2025 Estimated weight: 362.3 g. EFW by AC, BPD, FL, HC, [place]lock 1985 Biparietal diameter (BPD): 4.48 cm. EGA (BPD) is 19 w 4 d. 9.7 % percentile Head circumference (HC): 17.83 cm. EGA (HC) is 20 w 2 d. 23 % percentile Abdominal circumference (AC): 15.39 cm. EGA (AC) is 20 w 4 d. 38.9 % percentile Femur length (FL): 3.41 cm. EGA (FL) is 20 w 5 d. 41.3 % percentile HC/AC: 1.16. (Normal range: 1.07 - 1.25) FL/HC: 19.13. (Normal range: 16.54 - 19.94) FL/BPD: 76.12 FL/AC: 22.16 MATERNAL: Uterus: Unremarkable. Cervix: Cervical length measures 4.4 cm. Right ovary/adnexa: Obscured by lack of adequate acoustic window. Left ovary/adnexa: Obscured by lack of adequate acoustic window. Intraperitoneal space: No intraperitoneal free fluid. US/US OB >= 14 weeks fetus [id number] IMPRESSION: 1. Live intrauterine gestation with gestational age of 20 weeks and 2 days based on measurements/today's study. 2. Visualized anatomy within normal limits.
== END 2024-11-12 15:51 | disposition home or self-care (01) ==
LOC: RAD 15:52
PROVIDERS: PCP Family Medicine; Visit Provider Obstetrics & Gynecology
DX: O09.899 Supervision of other high risk pregnancies, unspecified trimester (principal)
CPT/HCPCS: 76805

== ENCOUNTER 2025-02-11 17:44 | Outpatient (CLI) | payer MEDICAID, SELFPAY ==
[2025-02-11 18:00] VITALS: BMI 28.0
[2025-02-11 18:02] VITALS: BP 121/68; PULSE 108
[2025-02-11 18:06] VITALS: RESP 16
[2025-02-11 19:11] LABS: Glucose Urine UA Negative (Normal); Nitrate Urine Negative (Negative); Specific Gravity, Urine 1.006 (1.005-1.030)
[2025-02-11 19:20] LABS: PCP Screen Urine Negative (Negative)
[2025-02-11 19:40] VITALS: BP 112/56; PULSE 77; RESP 14
[2025-02-11 21:04] VITALS: BP 104/54; PULSE 90; O2SAT 96
[2025-02-11 21:05] VITALS: BP 104/54; PULSE 90; RESP 14; TEMP 37.1; O2SAT 97
[2025-02-11] MEDS: betamethasone susp 6 mg/mL 5 mL 12 MG IM (21:09)
== END 2025-02-11 21:21 | disposition home or self-care (01) ==
LOC: OPOB 17:49 → OBGYN 17:50
PROVIDERS: PCP Family Medicine; Visit Provider Obstetrics & Gynecology
DX: O26.899 Other specified pregnancy related conditions, unspecified trimester (principal); Z3A.00 Weeks of gestation of pregnancy not specified; R10.9 Unspecified abdominal pain
CPT/HCPCS: 59025; 80306; 81001; 96372; 99211; J0702; J9999